=== PATIENT | male | born 1980 | race Caucasian/White ===

== ENCOUNTER 2022-07-19 10:10 | Outpatient (CLI) | payer BC, SELFPAY ==
--- NOTE | 2022-07-19 11:24 | W.ANESCHARGE ---
Anesthesia Charges Start Date/Time Anesthesia Start Date: 07/19/22 Anesthesia Start Time: 11:05 Stop Date/Time Anesthesia Stop Date: 07/19/22 Anesthesia Stop Time: 11:25 Summary Emergency: No
== END 2022-07-19 10:11 | disposition home or self-care (01) ==
PROVIDERS: PCP Family Medicine; Visit Provider Internal Medicine Gastroenterology
DX: R11.10 Vomiting, unspecified (principal); R93.3 Abnormal findings on diagnostic imaging of other parts of digestive tract
CPT/HCPCS: 00731; 43239; 88305; J2704; J3490